=== PATIENT | male | born 1985 | race Two or more races ===

== ENCOUNTER 2021-06-08 17:17 | Emergency (ER) | payer OTHER ==
[~2021-06-08] VITALS: Ht 175.3 cm; Wt 81.6 kg
--- NOTE | 2021-06-08 17:29 | NUR ---
PT BIBRA TO ER BED 13 FOR A SYNCOPAL EPISODE ON THE WAY TO URGENT CARE TODAY. PT STATES HES BEEN FEELING WEAK, W N/V/D FOR COUPLE OF DAYS NOW. 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 PER EMS. PT WAS HYPOTENSIVE W/ SYSTOLIC BP IN THE 80'S. 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 GOWNED AND PLACED ON MONITOR. KIRK SNIDER.
--- NOTE | 2021-06-08 17:38 | NUR ---
DR RHOADES AT BEDSIDE FOR EVAL.
--- NOTE | 2021-06-08 17:58 | NUR ---
CONFERENCE CENTER MANAGER AT BEDSIDE FOR BLOOD DRAW.
[2021-06-08] MEDS ORDERED: IV NS 0.9% 1,000 ML BAG IV ONE (18:00)
[2021-06-08] MEDS ORDERED: ACETAMINOPHEN ES 500 MG TABLET ONE (18:07)
--- NOTE | 2021-06-08 18:07 | NUR ---
THE PATIENT IS TAKEN TO CT
[2021-06-08 18:10] LABS: BASOPHILS % (AUTO) 0.2 % (0.0-2.0); EOSINOPHILS % (AUTO) 0.9 % (0.0-6.0); HEMATOCRIT 50 % (39-51); LYMPHOCYTES # (AUTO) 0.5 K/uL (0.8-4.8); LYMPHOCYTES % (AUTO) 4.5 % (20.0-44.0); MEAN CORPUSCULAR HGB CONC 32 g/dl (31.0-36.0); MEAN CORPUSCULAR VOLUME 85 fL (80-96); MONOCYTES # (AUTO) 0.5 K/uL (0.1-1.30); MONOCYTES % (AUTO) 4.4 % (2.0-12.0); NEUTROPHILS # (AUTO) 9.7 K/uL (1.8-8.9); PLATELET COUNT (AUTO) 219 K/uL (150-450); RED BLOOD CELL COUNT(AUTO) 5.86 MIL/uL (4.5-6.0); WHITE BLOOD COUNT (AUTO) 10.8 K/uL (4.3-11.0)
--- NOTE | 2021-06-08 18:15 | NUR ---
THE PATIENT IS BACK FROM CT
[2021-06-08 18:22] LABS: CARBON DIOXIDE 26 mmol/L (21-32); CHLORIDE 106 mmol/L (98-107); CREATININE 1.3 mg/dL (0.6-1.3); GLUCOSE 104 mg/dL (74-106); POTASSIUM 4.7 mmol/L (3.5-5.1); SODIUM SERUM 140 mmol/L (136-145); UREA NITROGEN, BLOOD 16 mg/dL (7-18)
[2021-06-08 18:23] LABS: CALCIUM, SERUM 8.6 mg/dL (8.5-10.1)
[2021-06-08 18:28] LABS: ALANINE AMINOTRANSFERASE 46 U/L (12-78); ALBUMIN 4.1 g/dL (3.4-5.0); ALKALINE PHOSPHATASE 89 U/L (46-116); ASPARTATE AMINOTRANSFERASE 27 U/L (15-37); BILIRUBIN,DIRECT 0.1 mg/dL (0.0-0.2); BILIRUBIN,TOTAL 0.7 mg/dL (0.2-1.0); LIPASE 76 U/L (73-393)
[2021-06-08] MEDS ORDERED: ACETAMINOPHEN ES 500 MG TABLET PO ONE (18:30)
[2021-06-08 18:49] LABS: BILIRUBIN,URINE Negative (NEGATIVE); COLOR,URINE YELLOW (YELLOW); LEUKOCYTE ESTERASE ,URINE Negative (NEGATIVE); NITRITE, URINE Negative (NEGATIVE); PROTEIN,URINE 30 mg/dl (NEGATIVE); UGLUCOSE Negative (NEGATIVE); UROBILINOGEN,URINE 0.2 EU/dL (0.2)
[2021-06-08 18:53] LABS: BACTERIA,URINE Rare /HPF (None Seen); RBC,URINE NONE SEEN /HPF (0-2); SQUAMOUS EPITHELIAL CELL,UR Few /HPF (None Seen); WBC,URINE NONE SEEN /HPF (0-3)
[2021-06-08] MEDS ORDERED: ONDA4TAB5 PO (19:23)
[2021-06-08 19:47] VITALS: BP 112/68
--- NOTE | 2021-06-08 19:47 | NUR ---
Patient discharged to home in stable condition. Written and verbal after care instructions given. Patient verbalizes understanding of instruction.IV removed. Catheter intact and site benign. Pressure and 4x4 applied to site. No bleeding noted.
== END 2021-06-08 19:48 | disposition home or self-care (01) ==
LOC: ER 17:19
DX: R55 Syncope and collapse (principal); R11.2 Nausea with vomiting, unspecified; R19.7 Diarrhea, unspecified; M10.9 Gout, unspecified
CPT/HCPCS: 36415; 74176; 80048; 80076; 81001; 83605; 83690; 84484; 85025; 93005; 96360; 99285; J7030